=== PATIENT | male | born 1945 | race Caucasian/White ===

== ENCOUNTER 2017-06-04 10:39 | Outpatient (CLI) | payer MEDICARE, OTHER ==
[2017-06-04 18:19] LABS: INR 3.4 (0.8-1.2); PT - PROTHROMBIN TIME 36.7 secs (9.9-12.6)
== END 2017-06-04 10:40 | disposition home or self-care (01) ==
LOC: LAB.F 10:39
PROVIDERS: ATTEND Pharmacist
DX: Z86.718 Personal history of other venous thrombosis and embolism (principal); Z79.01 Long term (current) use of anticoagulants
CPT/HCPCS: 36415; 85610

== ENCOUNTER 2017-06-20 10:00 | Outpatient (CLI) | payer MEDICARE ==
[2017-06-20 19:16] LABS: PT - PROTHROMBIN TIME 32.9 secs (9.9-12.6)
== END 2017-06-20 10:01 | disposition home or self-care (01) ==
LOC: LAB.F 10:00
PROVIDERS: ATTEND Pharmacist
DX: Z86.718 Personal history of other venous thrombosis and embolism (principal); Z79.01 Long term (current) use of anticoagulants
CPT/HCPCS: 36415; 85610

== ENCOUNTER 2017-07-04 10:41 | Outpatient (CLI) | payer MEDICARE ==
[2017-07-04 19:01] LABS: INR 2.8 (0.8-1.2); PT - PROTHROMBIN TIME 30.2 secs (9.9-12.6)
== END 2017-07-04 10:42 | disposition home or self-care (01) ==
LOC: LAB.F 10:41
PROVIDERS: ATTEND Pharmacist
DX: Z86.718 Personal history of other venous thrombosis and embolism (principal); Z79.01 Long term (current) use of anticoagulants
CPT/HCPCS: 36415; 85610

== ENCOUNTER 2017-07-19 09:21 | Outpatient (CLI) | payer MEDICARE ==
[2017-07-19 17:56] LABS: PT - PROTHROMBIN TIME 32.6 secs (9.9-12.6)
== END 2017-07-19 09:22 | disposition home or self-care (01) ==
LOC: LAB.F 09:21
PROVIDERS: ATTEND Pharmacist
DX: Z79.01 Long term (current) use of anticoagulants (principal); Z86.718 Personal history of other venous thrombosis and embolism
CPT/HCPCS: 36415; 85610

== ENCOUNTER 2017-10-09 09:22 | Outpatient (CLI) | payer MEDICARE ==
[2017-10-09 18:15] LABS: PT - PROTHROMBIN TIME 50.1 secs (9.9-12.6)
[2017-10-10 08:20] LABS: INR 4.7 (0.8-1.2)
== END 2017-10-09 09:23 | disposition home or self-care (01) ==
LOC: LAB.F 09:22
PROVIDERS: ATTEND Pharmacist
DX: Z86.718 Personal history of other venous thrombosis and embolism (principal); Z79.01 Long term (current) use of anticoagulants
CPT/HCPCS: 36415; 85610

== ENCOUNTER 2017-10-17 10:09 | Outpatient (CLI) | payer MEDICARE ==
[2017-10-17 18:18] LABS: INR 1.7 (0.8-1.2); PT - PROTHROMBIN TIME 19.2 secs (9.9-12.6)
== END 2017-10-17 10:10 | disposition home or self-care (01) ==
LOC: LAB.F 10:09
PROVIDERS: ATTEND Pharmacist
DX: Z86.718 Personal history of other venous thrombosis and embolism (principal); Z79.01 Long term (current) use of anticoagulants
CPT/HCPCS: 36415; 85610

== ENCOUNTER 2017-11-06 09:19 | Outpatient (CLI) | payer MEDICARE ==
[2017-11-06 18:33] LABS: INR 2.7 (0.8-1.2); PT - PROTHROMBIN TIME 29.6 secs (9.9-12.6)
== END 2017-11-06 09:20 | disposition home or self-care (01) ==
LOC: LAB.F 09:19
PROVIDERS: ATTEND Pharmacist
DX: Z86.718 Personal history of other venous thrombosis and embolism (principal); Z79.01 Long term (current) use of anticoagulants
CPT/HCPCS: 36415; 85610

== ENCOUNTER 2017-11-11 09:33 | Outpatient (CLI) | payer MEDICARE ==
[2017-11-11 19:32] LABS: INR 3.3 (0.8-1.2); PT - PROTHROMBIN TIME 35.6 secs (9.9-12.6)
== END 2017-11-11 09:34 | disposition home or self-care (01) ==
LOC: LAB.F 09:33
PROVIDERS: ATTEND Pharmacist
DX: Z86.718 Personal history of other venous thrombosis and embolism (principal); Z79.01 Long term (current) use of anticoagulants
CPT/HCPCS: 36415; 85610

== ENCOUNTER 2019-07-04 05:04 | Outpatient (CLI) | payer MEDICARE | END 2019-07-04 23:59 | disposition EMS.NT | LOC: EMS 05:04 | PROVIDERS: ATTEND Surgery | DX: R53.1 Weakness (principal) ==

== ENCOUNTER 2020-01-30 21:15 | Emergency (ER) | payer MEDICARE ==
[2020-01-30 21:58] LABS: BASOPHILS % (AUTO) 0.5 %; EOSINOPHILS % (AUTO) 16.4 %; HGB - HEMOGLOBIN 8.4 g/dL (14.0-18.0); MEAN CORPUSCULAR HEMOGLOBIN 31.7 pg (27.0-31.0); MEAN CORPUSCULAR HGB CONC 32.4 g/dL (32.0-36.0); MEAN CORPUSCULAR VOLUME 97.7 fL (80.0-94.0); MEAN PLATELET VOLUME 9.3 fL (7.4-11.4); MONOCYTES % (AUTO) 8.9 %; NEUTROPHILS % (AUTO) 66.6 %; PLT - PLATELET COUNT 162 10^3/uL (130-450); RED BLOOD COUNT 2.65 10^6/uL (4.70-6.10); RED CELL DISTRIBUTION WIDTH 14.5 % (12.0-15.0); WHITE BLOOD COUNT 8.9 x10^3/uL (4.8-10.8)
[2020-01-30 22:06] LABS: ABNORMAL LYMPHS % (MANUAL) 0 %
[2020-01-30 22:13] LABS: ALBUMIN 3.5 g/dL (3.2-5.5); ALBUMIN/GLOBULIN RATIO 1.1 (1.0-2.2); ALKALINE PHOSPHATASE 97 IU/L (42-121); ALT ALANINE AMINOTRANSFERASE 10 IU/L (10-60); AST ASPARTATE AMINOTRANSFERASE < 10 IU/L (10-42); BILIRUBIN,TOTAL 0.6 mg/dL (0.2-1.0); CALCIUM 8.6 mg/dL (8.5-10.3); CARBON DIOXIDE - CO2 20 mmol/L (21-32); CHLORIDE 109 mmol/L (101-111); CREATININE 2.7 mg/dL (0.6-1.2); GLUCOSE 125 mg/dL (70-100); LIPASE 26 U/L (22-51); SODIUM 141 mmol/L (135-145); TOTAL PROTEIN 6.8 g/dL (6.7-8.2)
[2020-01-30 22:15] LABS: BUN - BLOOD UREA NITROGEN 93 mg/dL (6-20)
--- NOTE | 2020-01-30 22:23 | ED Physician Documentation ---
PD HPI DYSPNEA - Stated complaint Stated Complaint: LOW O2 LEVEL - Chief complaint Chief Complaint: Resp - History obtained from History obtained from: Patient, Family - History of Present Illness Timing - onset: How many weeks ago (1) Timing - details: Gradual onset, Waxing and waning Pain level now: 0 Improved by: O2, Rest Worsened by: Exertion Associated symptoms: No: Fever, Cough, Wheezing, Chest pain / discomfort, Palpitations - Additional information Additional information: brought to ED by family, dyspnea x 1 week with low pulse ox. daughter says patient only uses oxygen at night with CPAP. over past 1-2 days, she notes pulse ox during day was as low as low 80s even with 2liters supplemental oxygen (during day). she says his doctor advised he come to ED for evaluation, particularly concerned there might be pleural effusion(s), as he had thoracentesis of large effusions few months ago. he has also received iron and blood transfusions recently, as well. Review of Systems Constitutional: reports: Reviewed and negative Cardiac: reports: Reviewed and negative Respiratory: reports: Dyspnea. denies: Cough, Wheezing GI: reports: Reviewed and negative PD PAST MEDICAL HISTORY - Past Medical History Cardiovascular: Hypertension, [place] Respiratory: Asthma, Sleep apnea, CPAP use Endocrine/Autoimmune: Type 2 diabetes GI: None : None Psych: None Musculoskeletal: Osteoarthritis - Past Surgical History Past Surgical History: Yes Cardiovascular: Coronary stent - Present Medications Home Medications: Ambulatory Orders Medication Instructions Recorded Confirmed Albuterol [Ventolin Hfa] 07/17/13 07/17/13 Amlodipine Besylate 10 07/17/13 07/17/13 Aspirin 81 DAILY 07/17/13 07/17/13 Atenolol 50 07/17/13 07/17/13 Doxycycline [Vibramycin] 100 mg PO BID #14 tablet 07/17/13 Furosemide [Lasix] 40 07/17/13 07/17/13 Furosemide [Lasix] 40 mg PO DAILY #10 tablet 07/17/13 Glargine 50 07/17/13 07/17/13 Insulin Regular Human [NovoLIN R] 6 07/17/13 07/17/13 Loratadine 10 PRN 07/17/13 07/17/13 Metformin HCl [Metformin ER 1,000 07/17/13 07/17/13 Osmotic] Mometasone Furoate [Asmanex] 220 07/17/13 07/17/13 Pantoprazole Sodium 40 DAILY 07/17/13 07/17/13 Rosuvastatin [Crestor] 20 07/17/13 07/17/13 Testosterone Cypionate 07/17/13 07/17/13 lisinopriL [Lisinopril] 40 DAILY 07/17/13 07/17/13 traMADol [Ultram] 1 07/17/13 07/17/13 - Social History Does the pt smoke?: No Smoking Status: Never smoker Does the pt drink ETOH?: No Does the pt have substance abuse?: No - Immunizations Immunizations are current?: Yes - POLST Patient has POLST: No PD ED PE NORMAL - Vitals Vital signs reviewed: Yes - General General: Alert and oriented X 3, No acute distress, Well developed/nourished - HEENT HEENT: Moist mucous membranes - Neck Neck: Supple, no meningeal sign - Cardiac Cardiac: RRR - Respiratory Respiratory: No respiratory distress, Clear bilaterally - Abdomen Abdomen: Soft, Non tender - Derm Derm: Normal color, Warm and dry - Extremities Extremities: No edema PD ED PE EXPANDED - Cardiac Cardiac: Murmur Present Results - Vitals Vitals: Oxygen O2 Source Nasal cannula Oxygen Flow Rate 2 - EKG (time done) No standard instances Rate: Rate (enter#) (58) Rhythm: NSR Intervals: LBBB - Labs Labs: Laboratory Tests 01/30/20 01/30/20 01/30/20 21:52 21:52 21:52 WBC 8.9 RBC 2.65 L Hgb 8.4 L Hct 25.9 L MCV 97.7 H MCH 31.7 H MCHC 32.4 RDW 14.5 Plt Count 162 MPV 9.3 Neut # (Auto) Not Reportable Lymph # (Auto) Not Reportable [place] # (Auto) Not Reportable Eos # (Auto) Not Reportable Baso # (Auto) Not Reportable Absolute Nucleated RBC Not Reportable Total Counted 100 Band Neuts % (Manual) 1 Abnorm Lymph % (Manual) 0 Nucleated RBC % Not Reportable Neutrophils # (Manual) 5.9 Lymphocytes # (Manual) 1.2 L Monocytes # (Manual) 0.3 Eosinophils # (Manual) 1.6 H Basophils # (Manual) 0.0 Differential Comment MANUAL DIFFERENTIAL Platelet Estimate NORMAL (130-450,000) Platelet Morphology NORMAL APPEARANCE RBC Morph Micro Appear NORMAL APPEARANCE Sodium 141 Potassium 4.5 Chloride 109 Carbon Dioxide 20 L Anion Gap 12.0 BUN 93 H* Creatinine 2.7 H Estimated GFR (MDRD) 23 L Glucose 125 H Calcium 8.6 Total Bilirubin 0.6 AST < 10 L ALT 10 Alkaline Phosphatase 97 B-Natriuretic Peptide 122 H Total Protein 6.8 Albumin 3.5 Globulin 3.3 Albumin/Globulin Ratio 1.1 Lipase 26 - Rads (name of study) chest xray Radiology: Prelim report reviewed, See rad report PD MEDICAL DECISION MAKING - ED course Complexity details: reviewed results, re-evaluated patient, considered differential, d/w patient, d/w family ED course: patient denies dyspnea while in [facility] ED and pulse ox on 2 liters NC is 96-98% with good pleth. labs are significant for anemia and elevated bun/creatinine. patients daughter indicates these are not new findings, but unfortunately does not know what his typical values are for these labs. [facility] and they say that due to power outage problems, they cannot obtain these results at this time (they encouraged the [facility] to fax a request, but fax failed to be received). patients daughter feels he is at his baseline from a clinical standpoint and would like to take him home. his vitals are stable and he has good pulse ox with 2 liters oxygen which can be provided at home. Departure - Departure Disposition: 01 Home, Self Care Clinical Impression: Dyspnea Condition: Good Instructions: ED Dyspnea Shortness of Breath Follow-Up: Kaley Evans MD [Primary Care Provider] - Discharge Date/Time: 01/30/20 23:45
[2020-01-30 22:25] LABS: BAND NEUTROPHILS % (MANUAL) 1 %; EOSINOPHILS # (MANUAL) 1.6 10^3/uL (0-0.7); LYMPHOCYTES # (MANUAL) 1.2 10^3/uL (1.5-3.5); LYMPHOCYTES % (MANUAL) 13 %; MONOCYTES # (MANUAL) 0.3 10^3/uL (0.0-1.0)
[2020-01-30 22:26] LABS: DIFFERENTIAL COMMENT MANUAL DIFFERENTIAL; PLATELET ESTIMATE, MANUAL NORMAL (130-450,000) (NORMAL); PLATELET MORPHOLOGY NORMAL APPEARANCE (NORMAL); RBC MORPHOLOGY (MULTIPLE) NORMAL APPEARANCE (NORMAL)
[2020-01-30 23:19] VITALS: BP 167/63
--- NOTE | 2020-01-31 08:45 | XRAY Report ---
PROCEDURE: Chest 1 View X-Ray INDICATIONS: hypoxemia TECHNIQUE: One view of the chest was acquired. COMPARISON: Chest x-ray examination dated 07.17.13. FINDINGS: Surgical changes and devices: None. Lungs and pleura: No pleural effusions or pneumothorax. Mild bibasilar predominant reticulonodular p ulmonary opacity. Mediastinum: Mediastinal contours appear normal. Heart size is enlarged. Bones and chest wall: No suspicious bony lesions. Overlying soft tissues appear unremarkable. IMPRESSION: Mild edema versus pneumonia. Concordant with preliminary interpretation. Reviewed by: Andriy Somers MD on 01/31/2020 8:44 AM PDT Approved by: Andriy Somers MD on 01/31/2020 8:44 AM PDT Station ID: [id number]
== END 2020-01-30 23:45 | disposition home or self-care (01) ==
LOC: ED 21:15
DX: R06.00 Dyspnea, unspecified (principal); I10 Essential (primary) hypertension; E11.9 Type 2 diabetes mellitus without complications; Z79.4 Long term (current) use of insulin; Z99.81 Dependence on supplemental oxygen
CPT/HCPCS: 36415; 71045; 80053; 83690; 83880; 85025; 93005; 99284

== ENCOUNTER 2020-02-26 10:10 | Outpatient (CLI) | payer MEDICARE | END 2020-02-26 10:11 | disposition home or self-care (01) | LOC: COV 10:10 | PROVIDERS: ATTEND Ophthalmology | DX: Z01.818 Encounter for other preprocedural examination (principal); H25.811 Combined forms of age-related cataract, right eye; Z20.828 Contact with and (suspected) exposure to other viral communicable diseases ==

== ENCOUNTER 2020-03-03 06:39 | Day surgery (SDC) | payer MEDICARE, OTHER ==
[~2020-03-03 06:39] MED LIST: CYCLOPENTOLATE 1% OPHTH DROPS 2 ML ONE; KETOROLAC 0.45% OPHTH DROPS ONE; PHENYLEPHRINE 2.5% OPHTH 2 ML DROPS ONE; PROPARACAINE 0.5% OPHTH DROPS 15 ML ONE
[2020-03-03] MEDS ORDERED: LACTATED RINGERS 1,000 ML IV ONE ×2 (06:51→08:48)
--- NOTE | 2020-03-03 07:34 | ANESTHESIA ---
Pre-Anesthesia VS, & Labs - Diagnosis R senile combined cataract - Procedure extraction cataract w/IOL Vital Signs: Temp Pulse Resp BP Pulse Ox 36.5 C 59 L 16 153/67 H 96 03/03/20 06:56 03/03/20 06:56 03/03/20 06:56 03/03/20 06:56 03/03/20 06:56 Height 5 ft 11 in Weight (kg) 119.75 kg Body Mass Index 37.0 - NPO >8 hours - Lab Results Current Lab Results: Laboratory Tests 03/03/20 07:23: POC Whole Bld Glucose 142 H Home Medications and Allergies Albuterol [Ventolin Hfa] 07/17/13 Amlodipine Besylate 10 07/17/13 Aspirin 81 DAILY 07/17/13 Atenolol 50 07/17/13 Furosemide [Lasix] 40 07/17/13 Glargine 50 07/17/13 Insulin Regular Human [NovoLIN R] 6 07/17/13 Loratadine 10 PRN 07/17/13 Metformin HCl [Metformin ER Osmotic] 1,000 07/17/13 Mometasone Furoate [Asmanex] 220 07/17/13 Pantoprazole Sodium 40 DAILY 07/17/13 Rosuvastatin [Crestor] 20 07/17/13 Testosterone Cypionate 07/17/13 lisinopriL [Lisinopril] 40 DAILY 07/17/13 traMADol [Ultram] 1 07/17/13 Allergies/Adverse Reactions: Allergies Allergy/AdvReac Type Severity Reaction Status Date / Time No Known Drug Allergies Allergy Verified 03/03/20 07:16 Anes History & Medical History - Anesthetic History Anesthesia Complications: reports: No previous complications Family history of Anesthesia Complications: Denies Family history of Malignant Hyperthermia: Denies - Medical History Cardiovascular: reports: Hypertension, [place] Pulmonary: reports: Asthma, Sleep apnea, CPAP use Gastrointestinal: reports: None Urinary: reports: None Musculoskeletal: reports: Osteoarthritis Endocrine/Autoimmune: reports: Type 2 diabetes Blood Disorders: reports: None Smoking Status: Never smoker - Surgical History Cardiothoracic: Coronary stent Exam General: Alert, Oriented x3, Cooperative Dental: WNL Mouth Openin Fingerbreadth Neck Mobility: Normal Mallampati classification: II Thyromental Distance: 4-6 cm Respiratory: Lungs clear, Normal breath sounds Cardiovascular: Regular rate Neurological: Normal speech Mental/Cognitive Status: Alert/Oriented X3, Normal for patient Cognitive Status: Within normal limits Plan Anesthesia Type: MAC Consent for Procedure(s) Verified and Reviewed: Yes Code Status: Attempt Resuscitation ASA classification: 3-Severe systemic disease Is this case an emergency?: No
[2020-03-03] MEDS ORDERED: ePHEDrine 50 MG/ML VIAL IVP PRN (07:37)
[2020-03-03] MEDS ORDERED: NALOXONE 0.4 MG/ML VIAL IVP PRN (07:37)
[2020-03-03] MEDS ORDERED: HYDROmorphone 0.5 MG/0.5 ML SYRINGE IVP PRN (07:37)
[2020-03-03] MEDS ORDERED: fentaNYL 100 MCG/2 ML VIAL IVP PRN (07:37)
[2020-03-03] MEDS ORDERED: ONDANSETRON 4 MG/2 ML VIAL IVP PRN (07:37)
[2020-03-03] MEDS ORDERED: MORPHINE 2 MG/ML CARPUJECT IVP PRN (07:37)
[2020-03-03] MEDS ORDERED: ATROPINE ABBOJECT 1 MG/10 ML SYRINGE IVP PRN (07:37)
[2020-03-03] MEDS ORDERED: METOCLOPRAMIDE 10 MG/2 ML VIAL IVP PRN (07:37)
[2020-03-03] MEDS ORDERED: LACTATED RINGERS 1,000 ML IV SCH (08:00)
[2020-03-03] MEDS ORDERED: TRIAMCIN/MOXIFLOX OPHTHALMIC 0.6 ML VIAL IO ONE ×2 (08:19→08:34)
[2020-03-03] MEDS ORDERED: BSS/LIDOCAINE/EPINEPHRINE 1 ML SYRINGE ONE (08:20)
[2020-03-03] MEDS ORDERED: fentaNYL 100 MCG/2 ML VIAL IVP ONE (08:20)
[2020-03-03] MEDS ORDERED: VANCOMYCIN OPHTHALMI 8MG/0.8ML 8 MG/0.8 ML SYRINGE IO ONE ×2 (08:20→08:35)
[2020-03-03] MEDS ORDERED: MIDAZOLAM 2 MG/2 ML VIAL IVP ONE (08:20)
[2020-03-03] MEDS ORDERED: TIMOLOL 0.5% OPHTH DROPS ONE (08:20)
[2020-03-03] MEDS ORDERED: BRIMONIDINE 0.2% OPHTH DROPS 5 ML ONE (08:20)
[2020-03-03] MEDS ORDERED: EPINEPHrine 1 MG/ML AMP ONE (08:20)
[2020-03-03] MEDS ORDERED: BRIMONIDINE 0.2% OPHTH DROPS 5 ML OPTH ONE (08:33)
[2020-03-03] MEDS ORDERED: EPINEPHrine 1 MG/ML AMP IR ONE (08:33)
[2020-03-03] MEDS ORDERED: TIMOLOL 0.5% OPHTH DROPS OPTH ONE (08:34)
[2020-03-03] MEDS ORDERED: BSS/LIDOCAINE/EPINEPHRINE 1 ML SYRINGE IO ONE (08:34)
[2020-03-03] MEDS ORDERED: CHONDR SULF/HYALURONATE SYRINGE IO ONE (08:34)
[2020-03-03] MEDS ORDERED: PROPARACAINE 0.5% OPHTH DROPS 15 ML EACHEYE ONE (08:35)
--- NOTE | 2020-03-03 08:59 | ANESTHESIA POST OP EVALUATION ---
Anesthesia Post Eval - Post Anesthesia Eval Vitals: Last Vital Signs Temp 36.4 C L 03/03/20 08:47 Pulse 54 L 03/03/20 08:47 Resp 12 03/03/20 08:47 BP 141/82 H 03/03/20 08:47 Pulse Ox 94 03/03/20 08:47 CV Function Including HR & BP: positive: Stable Pain Control: positive: Satisfactory Nausea & Vomiting: positive: Negative Mental Status: positive: Baseline Respiratory Status: Airway Patent Hydration Status: Satisfactory Anesthesia Complications: positive: None
[2020-03-03 09:12] VITALS: BP 154/65
--- NOTE | 2020-03-03 09:28 | OPERATIVE REPORT ---
DATE OF SERVICE: 03/03/2020 Physician: Saul Huggins MD PREOPERATIVE DIAGNOSIS: Complex, visually significant cataract, right eye. Complex due to small pupil requiring expansion with a Malyugin ring. This was his first cataract surgery. POSTOPERATIVE DIAGNOSIS: Complex, visually significant cataract, right eye. Complex due to small pupil requiring expansion with a Malyugin ring. This was his first cataract surgery. PROCEDURE: Phacoemulsification with posterior chamber intraocular lens implant, right eye. SURGEON: Saul Huggins MD ANESTHESIA: Monitored anesthesia care. COMPLICATIONS: None. OPERATIVE INDICATIONS: This is a 74-year-old man with progressive vision loss in the right eye due to 3+ nuclear sclerotic, 2+ cortical, and 2-3+ posterior subcapsular cataract. Best corrected visual acuity was 20/125, with glare to hand motion vision in the right eye. Indications for surgery are overall decrease in vision, difficulty seeing words on a computer screen, difficulty reading, difficulty seeing words, closed caption or game scores on TV, difficulty seeing street signs, difficulty driving in low light or at night, difficulty driving at night because of headlights from other vehicles, difficulty with glare or bright lights in any situation, difficulty tracking a golf ball and decreased acuity with firearms. He was consented at length concerning risks and benefits of cataract surgery, after which he expressed a desire to proceed with surgery. OPERATIVE PROCEDURE: Patient was taken to OR #3 and placed under monitored anesthesia care. A surgical timeout was conducted confirming correct patient, correct procedure, and correct surgical site. He was given topical anesthesia, and prepped and draped in the usual sterile fashion. The eye was entered at the 12, and 9 o'clock positions. Intracameral Shugarcaine was injected into the anterior chamber, followed by Viscoat. Due to a small pupil a Malyugin ring was inserted into the anterior chamber and engaged the pupil margin at four points to dilate the pupil. A continuous-tear curvilinear capsulorrhexis was performed. The nucleus was hydrodissected and phacoemulsified. The cortex was evacuated using automated infusion and aspiration. Provisc was injected in the capsular bag, and a 20.0 diopter intraocular lens inserted in the bag. The Malyugin ring previously inserted to dilate the pupil was disinserted from the pupil margin and removed from the anterior chamber. Infusion and aspiration was used to evacuate the viscoelastic materials. The eye was inflated to physiologic pressure using balanced salt solution and found to be watertight. Approximately 0.25 mL of a mixture of triamcinolone and moxifloxacin was injected trans sclerally into the vitreous in inferotemporal quadrant. An additional 0.55 mL of a mixture of triamcinolone, moxifloxacin and vancomycin was injected subconjunctivally in the superior quadrant for infection and inflammation prophylaxis. Wound integrity was checked with Weck-Sharon sponges. Patient was taken from the Operating Room in good condition and given postoperative instructions. TD: 03/03/2020 08:58 JOSÉ
== END 2020-03-03 06:40 | disposition home or self-care (01) ==
LOC: SDS 06:39
PROVIDERS: ATTEND Ophthalmology
DX: E11.36 Type 2 diabetes mellitus with diabetic cataract (principal); H25.811 Combined forms of age-related cataract, right eye; I10 Essential (primary) hypertension; J45.909 Unspecified asthma, uncomplicated; G47.30 Sleep apnea, unspecified; I25.10 Atherosclerotic heart disease of native coronary artery without angina pectoris; M10.9 Gout, unspecified; E78.00 Pure hypercholesterolemia, unspecified; F43.10 Post-traumatic stress disorder, unspecified; D64.9 Anemia, unspecified; H35.30 Unspecified macular degeneration; Z95.5 Presence of coronary angioplasty implant and graft; I25.2 Old myocardial infarction; Z87.891 Personal history of nicotine dependence
CPT/HCPCS: 66982; A9270; J3490; J7120; V2632

== ENCOUNTER 2020-04-01 12:53 | Outpatient (CLI) | payer OTHER | END 2020-04-01 12:54 | disposition home or self-care (01) | LOC: COV 12:53 | PROVIDERS: ATTEND Ophthalmology | DX: Z01.818 Encounter for other preprocedural examination (principal); H25.812 Combined forms of age-related cataract, left eye; Z20.828 Contact with and (suspected) exposure to other viral communicable diseases ==

== ENCOUNTER 2020-04-08 13:44 | Outpatient (CLI) | payer OTHER | END 2020-04-08 13:45 | disposition home or self-care (01) | LOC: COV 13:44 | PROVIDERS: ATTEND Ophthalmology | DX: Z01.818 Encounter for other preprocedural examination (principal); H25.812 Combined forms of age-related cataract, left eye; Z20.828 Contact with and (suspected) exposure to other viral communicable diseases ==

== ENCOUNTER 2020-04-14 06:08 | Day surgery (SDC) | payer OTHER ==
[2020-04-14] MEDS ORDERED: LACTATED RINGERS 500 ML IV ONE (06:32)
[2020-04-14] MEDS ORDERED: PHENYLEPHRINE 2.5% OPHTH 2 ML DROPS ONE (06:36)
[2020-04-14] MEDS ORDERED: KETOROLAC 0.45% OPHTH DROPS ONE (06:36)
[2020-04-14] MEDS ORDERED: PROPARACAINE 0.5% OPHTH DROPS 15 ML ONE (06:37)
[2020-04-14] MEDS ORDERED: CYCLOPENTOLATE 1% OPHTH DROPS 2 ML LEFTEYE ONE (06:50)
[2020-04-14] MEDS ORDERED: TIMOLOL 0.5% OPHTH DROPS ONE (07:17)
[2020-04-14] MEDS ORDERED: BRIMONIDINE 0.2% OPHTH DROPS 5 ML ONE ×2 (07:17)
[2020-04-14] MEDS ORDERED: BSS/LIDOCAINE/EPINEPHRINE 1 ML SYRINGE ONE (07:18)
[2020-04-14] MEDS ORDERED: TRIAMCIN/MOXIFLOX OPHTHALMIC 0.6 ML VIAL IO ONE ×2 (07:19→07:30)
[2020-04-14] MEDS ORDERED: HYDROmorphone 0.5 MG/0.5 ML SYRINGE IVP PRN (07:20)
[2020-04-14] MEDS ORDERED: MORPHINE 2 MG/ML CARPUJECT IVP PRN (07:20)
[2020-04-14] MEDS ORDERED: ATROPINE ABBOJECT 1 MG/10 ML SYRINGE IVP PRN (07:20)
[2020-04-14] MEDS ORDERED: ePHEDrine 50 MG/ML VIAL IVP PRN (07:20)
[2020-04-14] MEDS ORDERED: ONDANSETRON 4 MG/2 ML VIAL IVP PRN (07:20)
[2020-04-14] MEDS ORDERED: fentaNYL 100 MCG/2 ML VIAL IVP PRN (07:20)
[2020-04-14] MEDS ORDERED: METOCLOPRAMIDE 10 MG/2 ML VIAL IVP PRN (07:20)
[2020-04-14] MEDS ORDERED: NALOXONE 0.4 MG/ML VIAL IVP PRN (07:20)
--- NOTE | 2020-04-14 07:20 | ANESTHESIA ---
Pre-Anesthesia VS, & Labs - Diagnosis left eye cataract - Procedure left CATIOL Vital Signs: Temp Pulse Resp BP Pulse Ox 36.7 C 56 L 18 132/55 H 95 04/14/20 06:34 04/14/20 06:34 04/14/20 06:34 04/14/20 06:34 04/14/20 06:34 Height: 5 ft 11 in Weight (kg): 125.2 kg Body Mass Index: 38.5 BMI Classification: Obese - NPO >8 hours - Lab Results Current Lab Results: Laboratory Tests 04/14/20 06:42: POC Whole Bld Glucose 146 H Lab results reviewed: Yes Home Medications and Allergies Home Medications: Ambulatory Orders Allopurinol [Zyloprim] 04/13/20 Amlodipine Besylate [Norvasc] 04/13/20 Carvedilol [Coreg] 04/13/20 Prazosin [Minipress] 04/13/20 Pregabalin [Lyrica] 04/13/20 Sertraline [Zoloft] 04/13/20 Sodium Bicarbonate 04/13/20 clonazePAM [KlonoPIN] 04/13/20 Albuterol [Ventolin Hfa] 07/17/13 Amlodipine Besylate 10 mg PO DAILY 07/17/13 Aspirin 81 mg PO DAILY 07/17/13 Glargine 40 units SUBQ DAILY 07/17/13 Insulin Regular Human [NovoLIN R] 15 unit SUBQ AC 07/17/13 Loratadine 10 mg PO DAILY 07/17/13 Mometasone Furoate [Asmanex] 220 mg PO DAILY 07/17/13 Pantoprazole Sodium 40 mg PO DAILY 07/17/13 Rosuvastatin [Crestor] 10 mg PO DAILY 07/17/13 Apixaban [Eliquis] 2.5 mg PO DAILY 03/03/20 Hydralazine HCl 50 mg PO TID 03/03/20 Mirtazapine 30 mg PO DAILY 03/03/20 Torsemide 20 mg PO DAILY 03/03/20 Allopurinol [Zyloprim] 04/13/20 Amlodipine Besylate [Norvasc] 04/13/20 Carvedilol [Coreg] 04/13/20 Prazosin [Minipress] 04/13/20 Pregabalin [Lyrica] 04/13/20 Sertraline [Zoloft] 04/13/20 Sodium Bicarbonate 04/13/20 clonazePAM [KlonoPIN] 04/13/20 Allergies/Adverse Reactions: Allergies Allergy/AdvReac Type Severity Reaction Status Date / Time No Known Drug Allergies Allergy Verified 03/03/20 07:16 Anes History & Medical History - Anesthetic History Anesthesia Complications: reports: No previous complications Family history of Anesthesia Complications: Denies Family history of Malignant Hyperthermia: Denies - Medical History Cardiovascular: reports: Hypertension, [place] Pulmonary: reports: Asthma, Sleep apnea, CPAP use Gastrointestinal: reports: None Urinary: reports: None Musculoskeletal: reports: Osteoarthritis Endocrine/Autoimmune: reports: Type 2 diabetes Blood Disorders: reports: None Skin: reports: None Smoking Status: Never smoker - Surgical History Cardiothoracic: Coronary stent Exam General: Alert, Oriented x3, Cooperative, No acute distress Dental: WNL Mouth Openin Fingerbreadth Neck Mobility: Normal Mallampati classification: II Respiratory: Lungs clear, Normal breath sounds, No respiratory distress, No accessory muscle use Cardiovascular: Regular rate, Normal S1, Normal S2, No murmurs Plan Anesthesia Type: MAC Consent for Procedure(s) Verified and Reviewed: Yes Code Status: Attempt Resuscitation ASA classification: 3-Severe systemic disease Is this case an emergency?: No
[2020-04-14] MEDS ORDERED: fentaNYL 100 MCG/2 ML VIAL IVP ONE (07:28)
[2020-04-14] MEDS ORDERED: BRIMONIDINE 0.2% OPHTH DROPS 5 ML OPTH ONE (07:28)
[2020-04-14] MEDS ORDERED: MIDAZOLAM 2 MG/2 ML VIAL IVP ONE (07:28)
[2020-04-14] MEDS ORDERED: EPINEPHrine 1 MG/ML AMP IR ONE (07:28)
[2020-04-14] MEDS ORDERED: TIMOLOL 0.5% OPHTH DROPS OPTH ONE (07:29)
[2020-04-14] MEDS ORDERED: CHONDR SULF/HYALURONATE SYRINGE IO ONE (07:29)
[2020-04-14] MEDS ORDERED: PROPARACAINE 0.5% OPHTH DROPS 15 ML EACHEYE ONE (07:30)
[2020-04-14] MEDS ORDERED: BSS/LIDOCAINE/EPINEPHRINE 1 ML SYRINGE IO ONE (07:30)
[2020-04-14] MEDS ORDERED: VANCOMYCIN OPHTHALMI 8MG/0.8ML 8 MG/0.8 ML SYRINGE IO ONE (07:31)
[2020-04-14] MEDS ORDERED: LACTATED RINGERS 1,000 ML IV SCH (08:00)
--- NOTE | 2020-04-14 08:13 | ANESTHESIA POST OP EVALUATION ---
Anesthesia Post Eval - Post Anesthesia Eval Vitals: Last Vital Signs Temp 36.6 C 04/14/20 07:56 Pulse 54 L 04/14/20 07:56 Resp 16 04/14/20 07:56 BP 133/56 H 04/14/20 07:56 Pulse Ox 96 04/14/20 07:56 CV Function Including HR & BP: positive: Stable Pain Control: positive: Satisfactory Nausea & Vomiting: positive: Negative Mental Status: positive: Baseline Respiratory Status: Airway Patent Hydration Status: Satisfactory Anesthesia Complications: positive: None
[2020-04-14] MEDS ORDERED: LACTATED RINGERS 1,000 ML IV ONE (08:15)
[2020-04-14 08:30] VITALS: BP 133/72
== END 2020-04-14 06:09 | disposition home or self-care (01) ==
LOC: SDS 06:08
PROVIDERS: ATTEND Ophthalmology
DX: E11.36 Type 2 diabetes mellitus with diabetic cataract (principal); H25.812 Combined forms of age-related cataract, left eye; Z79.4 Long term (current) use of insulin; I10 Essential (primary) hypertension; Z98.41 Cataract extraction status, right eye; E66.9 Obesity, unspecified; Z68.38 Body mass index [BMI] 38.0-38.9, adult; G47.30 Sleep apnea, unspecified; Z87.891 Personal history of nicotine dependence
CPT/HCPCS: 66982; A9270; J3490; J7120; V2632